=== PATIENT | female | born 1955 | race American Indian/Alaskan Native ===

== ENCOUNTER 2018-01-11 10:17 | Day surgery (SDC) | payer OTHER ==
[~2018-01-11] VITALS: Ht 165.1 cm; Wt 62.4 kg
[~2018-01-11 10:17] MED LIST: ALEN10; AMOCLA875 PO; AMOX500 PO; CHLO25 PO; CODACE30 PO; CYCL10 PO; FLURBIPROFEN 100 MG PO; HYDACE5 PO; NITR100CA PO; OLAN5 PO; PROM25 PO; TRAZ100
[2018-01-11] MEDS ORDERED: FISH OIL 1,0001 EAC1 (10:49)
== END 2018-01-11 12:35 | disposition home or self-care (01) ==
LOC: ORSCSDS 10:17
PROVIDERS: Internal Medicine Gastroenterology
PROC: 0DBE8ZX Excision of Large Intestine, Via Natural or Artificial Opening Endoscopic, Diagnostic (ICD-10-PCS; principal; 2018-01-11 11:30)
PROC: 0DBN8ZX Excision of Sigmoid Colon, Via Natural or Artificial Opening Endoscopic, Diagnostic (ICD-10-PCS; principal; 2018-01-11 11:30)
DX: K58.0 Irritable bowel syndrome with diarrhea (principal); K63.5 Polyp of colon; K64.8 Other hemorrhoids; R15.9 Full incontinence of feces; K62.5 Hemorrhage of anus and rectum; F41.9 Anxiety disorder, unspecified; F32.9 Major depressive disorder, single episode, unspecified; Z87.891 Personal history of nicotine dependence; Z79.899 Other long term (current) drug therapy
CPT/HCPCS: 88305; J7120

== ENCOUNTER 2021-01-07 20:46 | Emergency (ER) | payer MEDICARE, OTHER ==
[~2021-01-07 20:46] MED LIST changes: +FISH OIL 1,0001 EAC1
== END 2021-01-07 21:02 | disposition left against medical advice (07) ==
LOC: ER 20:46
DX: Z53.21 Procedure and treatment not carried out due to patient leaving prior to being seen by health care provider (principal)

== ENCOUNTER 2021-12-20 13:00 | Emergency (ER) | payer MEDICARE, OTHER ==
[~2021-12-20] VITALS: Ht 165.1 cm; Wt 65.8 kg
== END 2021-12-20 15:15 | disposition home or self-care (01) ==
LOC: ER 13:00
DX: M71.21 Synovial cyst of popliteal space [Baker], right knee (principal); M25.461 Effusion, right knee; Z87.891 Personal history of nicotine dependence; Z91.013 Allergy to seafood; Z91.018 Allergy to other foods
CPT/HCPCS: 73562-RT; 93971; 99283-25

== ENCOUNTER → 2022-08-20 | Outpatient (CLI) | payer MEDICARE, OTHER ==
[2022-08-24 15:08] LABS: HPV 16 Negative (Negative); HPV 18 Negative (Negative); HPV OTHER HR TYPES Negative (Negative)
== END | disposition home or self-care (01) ==
LOC: LAB SHORT 14:33 → LAB 14:33
PROVIDERS: Nurse Practitioner Family
DX: Z12.4 Encounter for screening for malignant neoplasm of cervix (principal); Z11.51 Encounter for screening for human papillomavirus (HPV)
CPT/HCPCS: 87624; G0123

== ENCOUNTER → 2023-10-10 | Outpatient (CLI) | payer MEDICARE, OTHER ==
[2023-10-13 15:18] LABS: Stool Occult Bld Immuno 1 Negative (NEGATIVE)
== END | disposition home or self-care (01) ==
LOC: LAB SHORT 09:15 → LAB 09:15
PROVIDERS: Physician Assistant
DX: R10.13 Epigastric pain (principal)
CPT/HCPCS: G0328

== ENCOUNTER 2024-05-31 07:50 | Day surgery (SDC) | payer MEDICARE, OTHER ==
[~2024-05-31] VITALS: Ht 165.1 cm; Wt 65.9 kg
[~2024-05-31 07:50] MED LIST changes: +DICY20 PO
[2024-05-31] MEDS ORDERED: ATOR10 (08:02)
[2024-05-31] MEDS ORDERED: ASPI325 (08:02)
[2024-05-31] MEDS ORDERED: FLUTICASONE-SA1 EAC1 (08:02)
[2024-05-31] MEDS ORDERED: ONELAX DOC50 MG/5 ML (08:02)
[2024-05-31] MEDS ORDERED: THERA-D2000 UNIT (08:02)
[2024-05-31] MEDS ORDERED: Calcium Carbon500 MG (08:12)
[2024-05-31] MEDS ORDERED: propofoL 50 ML IV ONE (08:47)
[2024-05-31] MEDS ORDERED: Lactated Ringer's 1,000 ML IV ONE ×2 (08:47→08:54)
[2024-05-31 10:26] VITALS: BP 113/78
== END 2024-05-31 10:25 | disposition home or self-care (01) ==
LOC: ORSCSDS 07:50
PROVIDERS: Specialist
PROC: 0DB58ZX Excision of Esophagus, Via Natural or Artificial Opening Endoscopic, Diagnostic (ICD-10-PCS; principal; 2024-05-31 09:15)
PROC: 0DB68ZX Excision of Stomach, Via Natural or Artificial Opening Endoscopic, Diagnostic (ICD-10-PCS; principal; 2024-05-31 09:15)
PROC: 0DBN8ZX Excision of Sigmoid Colon, Via Natural or Artificial Opening Endoscopic, Diagnostic (ICD-10-PCS; principal; 2024-05-31 09:15)
PROC: 0DB98ZX Excision of Duodenum, Via Natural or Artificial Opening Endoscopic, Diagnostic (ICD-10-PCS; principal; 2024-05-31 09:15)
PROC: 0DBH8ZX Excision of Cecum, Via Natural or Artificial Opening Endoscopic, Diagnostic (ICD-10-PCS; principal; 2024-05-31 09:15)
DX: R12 Heartburn (principal); K44.9 Diaphragmatic hernia without obstruction or gangrene; R14.0 Abdominal distension (gaseous); D12.0 Benign neoplasm of cecum; K63.5 Polyp of colon; K64.4 Residual hemorrhoidal skin tags; K64.8 Other hemorrhoids; Z86.010 Personal history of colon polyps; K58.2 Mixed irritable bowel syndrome; K62.5 Hemorrhage of anus and rectum; R10.9 Unspecified abdominal pain; J44.9 Chronic obstructive pulmonary disease, unspecified; F41.9 Anxiety disorder, unspecified; F32.A Depression, unspecified; Z79.82 Long term (current) use of aspirin; Z79.899 Other long term (current) drug therapy; Z87.891 Personal history of nicotine dependence
CPT/HCPCS: 88305; 88312; J2704; J7120